=== PATIENT | male | born 1935 | race African-American/Black ===

== ENCOUNTER 2020-04-18 13:02 | Emergency (ER) | payer MEDICARE, MEDICAID ==
[~2020-04-18] VITALS: Ht 177.8 cm; Wt 40.0 kg
[~2020-04-18 13:02] MED LIST: AMLO10TA80 PO; ATOR20TA MT; CLOP-31 MT; KEPP500 MT; LACT-252 PO
[2020-04-18] MEDS ORDERED: SODIUM CHLORIDE 0.9% 1,000 ML IV ONE (13:30)
[2020-04-18 14:07] LABS: HEMOGLOBIN. 12.5 g/dL (14.0-18.0); MEAN CORPUSCULAR HEMOGLOBIN 24.9 pg (28.0-32.0); MEAN CORPUSCULAR VOLUME 81.9 fL (80.0-94.0); MEAN PLATELET VOLUME 9.7 fl (7.4-10.4); PLATELET 633 x1000/uL (130-400)
[2020-04-18 14:16] LABS: INR 1.1; PROTHROMBIN TIME 11.9 sec (9.6-11.0)
[2020-04-18] MEDS ORDERED: LORAZEPAM 2MG/ML CPJ IV ONE ×2 (15:00→15:45)
[2020-04-18] MEDS ORDERED: MORPHINE SULFATE 4 MG/ML CPJ (NOT FOR IM USE) IV ONE ×2 (15:00→15:45)
[2020-04-18 15:09] LABS: CHLORIDE 115 mEq/L (98-107)
[2020-04-18 15:21] VITALS: BP 106/70
[2020-04-18 15:32] LABS: PLATELET ESTIMATE INCREASED
== END 2020-04-18 17:03 | disposition expired ==
LOC: ER 13:32
DX: Z00.00 Encounter for general adult medical examination without abnormal findings (principal); Z51.5 Encounter for palliative care; R62.7 Adult failure to thrive; I10 Essential (primary) hypertension; R56.9 Unspecified convulsions; F03.90 Unspecified dementia, unspecified severity, without behavioral disturbance, psychotic disturbance, mood disturbance, and anxiety
CPT/HCPCS: 36415; 80053; 82962; 83605; 84145; 84484; 85025; 85610; 87040; 96374; 96375; 99285; C1893; J2060; J2270; J7030